=== PATIENT | female | born 1995 | race Caucasian/White ===

== ENCOUNTER 2018-01-09 17:46 | Emergency (ER) | payer BC ==
[2018-01-09 17:50] VITALS: BP 134/92
[2018-01-09] MEDS ORDERED: ESCI20TA38 PO (17:55)
[2018-01-09] MEDS ORDERED: AMPH30TA10 PO (17:55)
--- NOTE | 2018-01-09 17:57 | ER Report ---
History and Physical Time Seen By MD: 17:54 HPI/ROS CHIEF COMPLAINT: Nosebleed HISTORY OF PRESENT ILLNESS: 21-year-old female with a history of infrequent nosebleeds. She's been unable to control today. There's been juliet bleeding from her right nares. Patient denies allergies, sinus symptoms, hypertension, blood thinners. Allergies: Coded Allergies: No Known Drug Allergies (Unverified , 01/09/18) Home Meds Reported Medications Escitalopram Oxalate (LEXAPRO) 20 Mg Tablet, 20 MG PO QDAY, TAB 01/09/18 Amphet Asp/Amphet/D-Amphet (ADDERALL 30 MG TABLET) 30 Mg Tablet, 30 MG PO QDAY 01/09/18 Reviewed Nurses Notes: Yes Old Medical Records Reviewed: Yes Constitutional Vital Sign - Last 24 Hours 01/09/18 17:50 Temp 98.0 Pulse 100 Resp 16 B/P (MAP) 134/92 Pulse Ox 100 O2 Delivery Room Air Physical Exam General Appearance: The patient is alert, has no immediate need for airway protection and no current signs of toxicity. HEENT: Pupils equal and round no injection. TMs normal, nasal passages with friable Kiesselbach's area and the right nares. Respiratory: Chest is non tender, lungs are clear to auscultation. Cardiac: regular rate and rhythm Gastrointestinal: Abdomen is soft and non tender, no masses, bowel sounds normal. Musculoskeletal: Neck: Neck is supple and non tender. No lymphadenopathy Extremities have full range of motion and are non tender. Skin: No rashes or lesions. DIFFERENTIAL DIAGNOSIS: After history and physical exam differential diagnosis was considered for nosebleed, sinusitis, allergic rhinitis, coagulopathy, trauma cytopenia and hypertension Medical Decision Making ED Course/Re-evaluation ED Course Patient was admitted to an examination room. H&P was done. The differential diagnoses was considered. On clinical examination. Patient has a fresh clot with bruising in the right nares. Her nasal passages are sprayed with [place]- Synephrine. After a brief period of observation nasal watery is applied with silver nitrate sticks in the right nares with good hemostasis. Patient advised to follow-up with Dr. Todd Bravo ENT. Information was provided. She is advised to moisten her nasal passages with a Q-tip when petroleum jelly in the form of antibiotic ointment. Patient was educated how to discontinue bleeding on her own at home. Decision to Disposition Date: Jan 09, 2018 Decision to Disposition Time: 18:48 Depart Departure Latest Vital Signs Vital Signs Date Time Temp Pulse Resp B/P (MAP) Pulse Ox O2 Delivery O2 Flow Rate FiO2 01/09/18 17:50 98.0 100 16 134/92 100 Room Air Impression: Primary Impression: Nosebleed Condition: Improved Disposition: HOME OR SELF-CARE Referrals: TODD BRAVO JR, MD Patient Instructions: Nosebleed (ED) Additional Instructions: Moisturizeyour nose with petroleum jelly/triple anabolic ointment or double antibiotic ointment. pea size dab on the Q-tip gently roll in the lower portion of your nasal passage to moisturize it ALEXANDER MARTINEZ DO Jan 09, 2018 17:57
[2018-01-09] MEDS ORDERED: ENT KIT ONE ×2 (18:01→18:45)
[2018-01-09] MEDS ORDERED: PHENYLEPHRINE 0.5% 15 ML BTL ONE (18:30)
== END 2018-01-09 19:08 | disposition home or self-care (01) ==
LOC: ER 17:58
DX: R04.0 Epistaxis (principal)
CPT/HCPCS: 99283